=== PATIENT | female | born 1990 | race Native Hawaiian/Other Pacific Islander ===

== ENCOUNTER 2019-01-02 09:12 | Emergency (ER) | payer SELFPAY ==
[2019-01-02 09:24] VITALS: BP 110/71; PULSE 77; RESP 16; TEMP 98.6; O2SAT 98; BMI 23.8
--- NOTE | 2019-01-02 09:53 | ED PDOC ---
HPI: CCC, URI, Sore Throat Time Seen by Provider: 01/02/19 09:38 Chief Complaint (Provider): Throat Pain History Per: Patient History/Exam Limitations: no limitations Have you had recent travel within the past 21 days to any of the following countries: [place], [place], [place] or [place]?: No Current Symptoms Are (Timing): Still Present Location Of Pain: Throat Sick Contacts (Context): None Associated Symptoms: Sore Throat. denies: Fever, Cough, Neck Pain, Nasal Congestion, Nausea, Vomiting, Diarrhea Ear Symptoms: Bilateral: Ear Fullness Severity: Mild Additional History Per: Patient Additional Complaint(s): 28 year old female with no medical history presents to the emergency room c/o throat pain since yesterday afternoon, runny nose and bilateral ear fullness, bodyaches. Patient states she felt tired this morning and upon arriving arrival to work she felt lightheaded and was sent to Emergency room for evaluation. Patient denies fever, nausea, vomiting, diarrhea. Past Medical History Vital Signs: Last Vital Signs Temp 98.6 F 01/02/19 09:23 Pulse 77 01/02/19 09:23 Resp 16 01/02/19 09:23 BP 110/71 01/02/19 09:23 Pulse Ox 98 01/02/19 09:23 - Medical History PMH: No Chronic Diseases - Surgical History Surgical History: No Surg Hx - Family History Family History: States: No Known Family Hx - Social History Alcohol: None Drugs: Denies - Immunization History Hx Tetanus Toxoid Vaccination: No Hx Influenza Vaccination: No Hx Pneumococcal Vaccination: No - Home Medications Home Medications: Ambulatory Orders Medication Instructions Recorded Diazepam [Valium] 5 mg PO Q8 PRN #10 tab 10/09/13 Ibuprofen 1 tab PO TID PRN #30 tab 10/09/13 Ascorbic Acid [Vitamin C] 1,000 mg PO DAILY 02/17/16 Calcium/Magnesium/Vit D3 [Calcium 1,000 mg PO DAILY 02/17/16 500 mg Tablet] Cholecalciferol [Vitamin D 1000 IU] 5,000 iu PO DAILY 02/17/16 Amoxicillin 500 mg PO BID #20 tablet 01/02/19 Ibuprofen [Motrin] 600 mg PO Q8H PRN #30 tab 01/02/19 - Allergies Allergies/Adverse Reactions: Allergies Allergy/AdvReac Type Severity Reaction Status Date / Time No Known Allergies Allergy Verified 01/02/19 09:50 Review of Systems ROS Statement: Except As Marked, All Systems Reviewed And Found Negative Constitutional: Positive for: Chills, Malaise. Negative for: Fever Eyes: Negative for: Conjunctivae Inflammation, Eyelid Inflammation, Redness ENT: Positive for: Nose Discharge (clear). Negative for: Ear Discharge Respiratory: Negative for: Cough, Shortness of Breath, SOB with Exertion, Wheezing Gastrointestinal: Negative for: Nausea, Vomiting, Abdominal Pain, Diarrhea, Constipation Skin: Negative for: Rash Neurological: Negative for: Weakness, Confusion, Dizziness Physical Exam - Reviewed Nursing Documentation Reviewed: Yes Vital Signs Reviewed: Yes - Physical Exam Appears: Positive for: Well, Non-toxic, No Acute Distress Head Exam: Positive for: ATRAUMATIC, NORMAL INSPECTION, NORMOCEPHALIC Skin: Positive for: Normal Color, Warm, DRY Eye Exam: Positive for: EOMI, Normal appearance, PERRL ENT: Positive for: Normal ENT Inspection, Pharynx Is (slightly enlarged ), TM Is/Are (intact), Nasal Congestion, Pharyngeal Erythema, Tonsillar Exudate, Tonsillar Swelling Neck: Positive for: Normal, Painless ROM Cardiovascular/Chest: Positive for: Regular Rate, Rhythm Respiratory: Positive for: CNT, Normal Breath Sounds Gastrointestinal/Abdominal: Positive for: Normal Exam, Soft Back: Positive for: Normal Inspection Extremity: Positive for: Normal ROM Neurological/Psych: Positive for: Awake, Alert, Normal Tone, Oriented - Laboratory Results Urine POC: Negative - ECG O2 Sat by Pulse Oximetry: 98 Medical Decision Making Medical Decision Making: --Rapid Strep Upreg (-) Strep A+ positive. --Patient stable for D/C home. Clinical findings discussed with patient. rx given for Motrin and Amoxicillin for ten days. Patient encouraged to take full course of antibiotics. Patient states understanding and agrees with plan. Disposition - Clinical Impression Clinical Impression: Strep pharyngitis - Patient ED Disposition Is Patient to be Admitted: No Counseled Patient/Family Regarding: Diagnosis, Rx Given - Disposition Disposition: Routine/Home Disposition Time: 11:00 Condition: STABLE Prescriptions: Amoxicillin 500 mg PO BID #20 tablet Ibuprofen [Motrin] 600 mg PO Q8H PRN #30 tab PRN Reason: Pain, Moderate (4-7) Instructions: Strep Throat (DC) Forms: [facility] ED School/Work Excuse - POA Present On Arrival: None
== END 2019-01-02 11:17 | disposition home or self-care (01) ==
LOC: H.ER 09:12
DX: J02.0 Streptococcal pharyngitis (principal)